=== PATIENT | female | born 1950 | race Caucasian/White ===

== ENCOUNTER → 2016-10-23 | Outpatient (CLI) | payer OTHER ==
[~2016-10-23] MED LIST: ASPIRIN EC81 MG PO; CALCIUM 600+D31 EACH PO; FUROSEMIDE20 MG PO; KLONOPIN TAB 00.5 MG PO; LISINOPRIL10 MG PO; NEURONTIN 300300 MG PO; NITROGLYCERIN8.5 GM TL; NITROGLYCERIN9 MG PO; NORCO 5-325 TA1 EACH PO; NORVASC 5 MG TAB5 MG PO; PRAVACHOL20 MG PO; PROLIA INJ60 MG/1 ML SC; PROTONIX 40 MG40 M1 PO; SLEEP AID25 M1 PO; SOTALOL80 MG PO; SPIRIVA18 MCG INH; VIIBRYD40 MG PO; VITAMIN D32000 UNIT PO; XARELTO20 MG PO
== END ==
LOC: HEART 5 10-12 08:00
DX: R06.89 Other abnormalities of breathing (principal); R06.00 Dyspnea, unspecified; I37.1 Nonrheumatic pulmonary valve insufficiency
CPT/HCPCS: 93306

== ENCOUNTER → 2017-01-02 | Outpatient (CLI) | payer OTHER ==
[~2017-01-02] VITALS: Ht 160 cm; Wt 63.5 kg
== END ==
LOC: OPSV 10:30
DX: S22.000A Wedge compression fracture of unspecified thoracic vertebra, initial encounter for closed fracture (principal); M81.0 Age-related osteoporosis without current pathological fracture
CPT/HCPCS: 96372

== ENCOUNTER → 2020-10-14 | Outpatient (CLI) | payer MEDICARE, OTHER ==
[~2020-10-14] MED LIST changes: +AMLODIPINE BESY10 MG PO; +ANUSOL HC SUPP1 SUPP PR; +BENZONATATE100 MG PO; +BETAPACE 80MG T80 MG PO; +BETHANECHOL CHL10 MG PO; +CARDIZEM CD180 MG PO; +CEFUROXIME500 MG PO; +CLARITIN 10MG T10 MG PO; +COLACE100 MG PO; +COMBIVENT RESPIM4 GM INH; +DYMISTA NASAL S23 GM; +EFFEXOR XR37.5 MG PO; +ELIQUIS2.5 MG PO; +FEOSOL325 MG PO; +HYDROCHLOROTH12.5 MG PO; +IMDUR ER TAB 3030 MG PO; -LISINOPRIL10 MG PO; +MYRBETRIQ25 MG PO; -NEURONTIN 300300 MG PO; +NEURONTIN400 MG PO; +NITROGLYCERIN0.4 MG SL; -NORCO 5-325 TA1 EACH PO; +NORCO 7.5-3251 EACH PO; +OXYCODONE HCL5 MG PO; +SPIRIVA HANDIH18 MCG INH; +SYMBICORT 16010.2 GM INH; +THERAGRAN M TAB1 EA PO; +VEGETABLE LAXA8.6 MG PO; +ZANTAC150 MG PO; +ZESTRIL40 MG PO; +ZOFRAN ODT 4 MG4 MG PO; +ZOFRAN4 MG PO
== END ==
LOC: ECHO 11:38
DX: I20.9 Angina pectoris, unspecified (principal); I08.1 Rheumatic disorders of both mitral and tricuspid valves; I27.20 Pulmonary hypertension, unspecified; R93.1 Abnormal findings on diagnostic imaging of heart and coronary circulation
CPT/HCPCS: ECHO; 78452; 93017; 93306; A9502; J2785

== ENCOUNTER → 2020-10-18 | Outpatient (CLI) | payer MEDICARE, OTHER ==
[2020-10-18 11:18] LABS: BUN/CREATININE RATIO 16 (0-10)
== END ==
LOC: OPSV2 09:00
PROVIDERS: Surgery
DX: Z01.818 Encounter for other preprocedural examination (principal); I10 Essential (primary) hypertension; I25.2 Old myocardial infarction; Z95.2 Presence of prosthetic heart valve; Z79.899 Other long term (current) drug therapy
CPT/HCPCS: 36415; 80048; 93005

== ENCOUNTER → 2020-10-19 | Outpatient (CLI) | payer MEDICARE, OTHER | LOC: CT 12:52 | DX: S09.90XA Unspecified injury of head, initial encounter (principal) | CPT/HCPCS: 70450 ==

== ENCOUNTER 2020-10-20 07:53 | Inpatient (IN) | payer MEDICARE, OTHER ==
[~2020-10-20] VITALS: Ht 160 cm; Wt 56.7 kg
[~2020-10-20 07:53] MED LIST changes: -AMLODIPINE BESY10 MG PO; -BETHANECHOL CHL10 MG PO; -CLARITIN 10MG T10 MG PO; -COLACE100 MG PO; -COMBIVENT RESPIM4 GM INH; -ELIQUIS2.5 MG PO; -HYDROCHLOROTH12.5 MG PO; -MYRBETRIQ25 MG PO; -NITROGLYCERIN0.4 MG SL; -OXYCODONE HCL5 MG PO; -SPIRIVA HANDIH18 MCG INH; -SYMBICORT 16010.2 GM INH; -VEGETABLE LAXA8.6 MG PO; -ZOFRAN4 MG PO
[2020-10-20] MEDS ORDERED: AMLODIPINE BESY10 MG PO (08:47)
[2020-10-20] MEDS ORDERED: CLARITIN 10MG T10 MG PO (08:48)
[2020-10-20] MEDS ORDERED: HYDROCHLOROTH12.5 MG PO (08:48)
[2020-10-20] MEDS ORDERED: PROTONIX 40 MG40 M1 PO (08:48)
[2020-10-20] MEDS ORDERED: ELIQUIS2.5 MG PO (08:49)
[2020-10-20] MEDS ORDERED: BETHANECHOL CHL10 MG PO (08:49)
[2020-10-20] MEDS ORDERED: MYRBETRIQ25 MG PO (08:49)
[2020-10-21 03:07] LABS: HEMOGLOBIN 15.1 gm/dl (12.3-15.3); RED BLOOD COUNT 4.67 M/UL (4.00-5.10); WHITE BLOOD COUNT 6.2 K/UL (4.5-11.0)
[2020-10-21 03:25] LABS: BUN/CREATININE RATIO 13 (0-10)
[2020-10-21] MEDS ORDERED: OXYCODONE HCL5 MG PO (12:29)
[2020-10-21] MEDS ORDERED: VEGETABLE LAXA8.6 MG PO (12:29)
[2020-10-21] MEDS ORDERED: COLACE100 MG PO (12:29)
[2020-10-22 12:14] LABS: HEMOGLOBIN 15.5 gm/dl (12.3-15.3); RED BLOOD COUNT 4.7 M/UL (4.00-5.10)
[2020-10-22 12:22] LABS: WHITE BLOOD COUNT 14.2 K/UL (4.5-11.0)
--- NOTE | 2020-10-25 12:04 | NUR ---
INSTRUCTED KEEP FOLLOW UP APPOINTMENT, SHOWER DAILY, ACTIVITY TOLERATED. MEDS SENT TO [facility], TAKE ALL MEDS PRESCRIBED. ISACC KELLY R.N.
== END 2020-10-25 13:18 | disposition home or self-care (01) | DRG 348 ==
LOC: OR 07:53 → M/S 13:36 → OR 10-21 13:15 → M/S 10-21 15:41
PROVIDERS: Surgery; ADMIT Surgery
PROC: 06BY0ZC Excision of Hemorrhoidal Plexus, Open Approach (ICD-10-PCS; principal; 2020-10-20)
DX: K64.4 Residual hemorrhoidal skin tags (principal); E87.1 Hypo-osmolality and hyponatremia; K64.8 Other hemorrhoids; K21.9 Gastro-esophageal reflux disease without esophagitis; J30.9 Allergic rhinitis, unspecified; F41.9 Anxiety disorder, unspecified; M19.90 Unspecified osteoarthritis, unspecified site; E78.5 Hyperlipidemia, unspecified; I10 Essential (primary) hypertension; G47.00 Insomnia, unspecified; M54.5 Low back pain; I48.0 Paroxysmal atrial fibrillation; I25.10 Atherosclerotic heart disease of native coronary artery without angina pectoris; G89.29 Other chronic pain; F17.200 Nicotine dependence, unspecified, uncomplicated; Z86.73 Personal history of transient ischemic attack (TIA), and cerebral infarction without residual deficits; Z98.890 Other specified postprocedural states; I25.2 Old myocardial infarction; Z88.1 Allergy status to other antibiotic agents; Z79.82 Long term (current) use of aspirin; Z95.5 Presence of coronary angioplasty implant and graft; Z79.01 Long term (current) use of anticoagulants
CPT/HCPCS: 36415; 80048; 85025; 85027; 94640; 94664; 94760; 97161; 97165; G0378; J1100; J1170; J2001; J2270; J2405; J2704; J3010; J7030; J7040; J7120

== ENCOUNTER 2020-12-01 19:32 | Inpatient (IN) | payer MEDICARE, OTHER ==
[~2020-12-01] VITALS: Ht 160 cm; Wt 56.7 kg
[~2020-12-01 19:32] MED LIST changes: +AMLODIPINE BESY10 MG PO; +BETHANECHOL CHL10 MG PO; +CLARITIN 10MG T10 MG PO; +COLACE100 MG PO; +ELIQUIS2.5 MG PO; +HYDROCHLOROTH12.5 MG PO; +MYRBETRIQ25 MG PO; +OXYCODONE HCL5 MG PO; +VEGETABLE LAXA8.6 MG PO
[2020-12-01 21:01] LABS: HEMOGLOBIN 16.2 gm/dl (12.3-15.3); RED BLOOD COUNT 4.98 M/UL (4.00-5.10); WHITE BLOOD COUNT 7.1 K/UL (4.5-11.0)
[2020-12-01 21:19] LABS: BUN/CREATININE RATIO 16 (0-10)
[2020-12-02 03:56] LABS: RED BLOOD COUNT 5.15 M/UL (4.00-5.10); WHITE BLOOD COUNT 7.9 K/UL (4.5-11.0)
[2020-12-02 04:43] LABS: BUN/CREATININE RATIO 15 (0-10)
[2020-12-03 06:00] LABS: HEMOGLOBIN 15.5 gm/dl (12.3-15.3); RED BLOOD COUNT 4.76 M/UL (4.00-5.10); WHITE BLOOD COUNT 9.7 K/UL (4.5-11.0)
[2020-12-03 06:16] LABS: BUN/CREATININE RATIO 23 (0-10)
--- NOTE | 2020-12-03 14:55 | NUR ---
1450: RA SPO2 NOTED AT 97% PER DR ALVAREZ. PATIENT TO BE PLACED ON PULSE OX X 2 HOURS AND THEN DISCONTINUE PER VO DR ALVAREZ. 1500: SPO2 MONITOR PLACED ON PATIENT PER VO DR ALVAREZ, SPO2 NOTED AT 98%.
[2020-12-04] MEDS ORDERED: NITROGLYCERIN0.4 MG SL (11:25)
[2020-12-04] MEDS ORDERED: ZOFRAN4 MG PO (11:25)
[2020-12-04] MEDS ORDERED: COMBIVENT RESPIM4 GM INH (11:28)
[2020-12-04] MEDS ORDERED: SPIRIVA HANDIH18 MCG INH (11:28)
[2020-12-04] MEDS ORDERED: SYMBICORT 16010.2 GM INH (11:28)
[2020-12-08 06:43] LABS: RED BLOOD COUNT 4.74 M/UL (4.00-5.10)
[2020-12-08 07:25] LABS: BUN/CREATININE RATIO 17 (0-10)
--- NOTE | 2020-12-08 14:49 | NUR ---
UNABLE TO DOCUMENT UNDER INTUGAMENTARY DUE TO PREVIOUSLY COMPLETED DIAGNOSIS. KYPHOPLASTY INCESION COVERED BY BAND-AID. CLEAN DRY AND INTACT.
[2020-12-09 06:42] LABS: HEMOGLOBIN 14.3 gm/dl (12.3-15.3); RED BLOOD COUNT 4.47 M/UL (4.00-5.10)
[2020-12-09 07:30] LABS: BUN/CREATININE RATIO 14 (0-10)
--- NOTE | 2020-12-09 07:45 | NUR ---
S/P KYPHOPLASTY INCESION BANDAIDS CLEAN,DRY,INTACT. WNL
== END 2020-12-10 17:59 | disposition home or self-care (01) | DRG 478 ==
LOC: ER1 19:32 → CDU 12-02 03:28 → MED SURG 4 12-02 03:28 → CDU 12-02 03:28 → MED SURG 4 12-02 17:51
PROVIDERS: Internal Medicine; Orthopaedic Surgery; Physician Assistant; ADMIT Internal Medicine
PROC: 0QS03ZZ Reposition Lumbar Vertebra, Percutaneous Approach (ICD-10-PCS; 2020-12-08)
PROC: 0QU03JZ Supplement Lumbar Vertebra with Synthetic Substitute, Percutaneous Approach (ICD-10-PCS; 2020-12-08)
PROC: 0QB03ZX Excision of Lumbar Vertebra, Percutaneous Approach, Diagnostic (ICD-10-PCS; principal; 2020-12-08 12:00)
DX: M80.88XA Other osteoporosis with current pathological fracture, vertebra(e), initial encounter for fracture (principal); J96.11 Chronic respiratory failure with hypoxia; R07.89 Other chest pain; K52.9 Noninfective gastroenteritis and colitis, unspecified; G89.4 Chronic pain syndrome; E87.6 Hypokalemia; R32 Unspecified urinary incontinence; K21.9 Gastro-esophageal reflux disease without esophagitis; A08.4 Viral intestinal infection, unspecified; K29.00 Acute gastritis without bleeding; M54.9 Dorsalgia, unspecified; I25.10 Atherosclerotic heart disease of native coronary artery without angina pectoris; I10 Essential (primary) hypertension; I48.0 Paroxysmal atrial fibrillation; J44.9 Chronic obstructive pulmonary disease, unspecified; F17.210 Nicotine dependence, cigarettes, uncomplicated; F41.9 Anxiety disorder, unspecified; Z86.73 Personal history of transient ischemic attack (TIA), and cerebral infarction without residual deficits; Z90.49 Acquired absence of other specified parts of digestive tract; Z95.5 Presence of coronary angioplasty implant and graft; Z79.899 Other long term (current) drug therapy; Z98.51 Tubal ligation status; Z79.82 Long term (current) use of aspirin; Z99.81 Dependence on supplemental oxygen; Z82.49 Family history of ischemic heart disease and other diseases of the circulatory system; Z88.1 Allergy status to other antibiotic agents; Z79.01 Long term (current) use of anticoagulants
CPT/HCPCS: 36415; 71045; 72131; 72148; 80048; 80053; 81001; 82550; 82553; 83690; 83874; 84484; 85025; 85610; 88341; 88342; 88364; 88365; 93005; 94640; 94664; 94760; 96374; 96375; 96376; 97110; 97116; 97116-GP-CQ; 97161; 97162; 97530; 97530-GP-CQ; 99284; 99285; C1713; C9113; J0690; J1100; J2270; J2405; J2550; J2704; J2710; J3010; J3480; J7030; J7120; Q9962; Q9967

== ENCOUNTER → 2020-12-19 | Outpatient (CLI) | payer MEDICARE, OTHER ==
[~2020-12-19] MED LIST changes: +COMBIVENT RESPIM4 GM INH; +NITROGLYCERIN0.4 MG SL; +SPIRIVA HANDIH18 MCG INH; +SYMBICORT 16010.2 GM INH; +ZOFRAN4 MG PO
[2020-12-19 17:02] LABS: BUN/CREATININE RATIO 25 (0-10)
== END ==
LOC: LAB 15:46
PROVIDERS: Nurse Practitioner Family
DX: E87.1 Hypo-osmolality and hyponatremia (principal)
CPT/HCPCS: 80048

== ENCOUNTER → 2020-12-27 | Outpatient (CLI) | payer MEDICARE, OTHER | LOC: EXRD 13:00 → KOH-I 13:00 | DX: M48.56XA Collapsed vertebra, not elsewhere classified, lumbar region, initial encounter for fracture (principal); M85.88 Other specified disorders of bone density and structure, other site; M81.0 Age-related osteoporosis without current pathological fracture | CPT/HCPCS: 77080 ==

== ENCOUNTER → 2020-12-28 | Outpatient (CLI) | payer MEDICARE, OTHER | LOC: KOH-I 09:37 | DX: M80.08XA Age-related osteoporosis with current pathological fracture, vertebra(e), initial encounter for fracture (principal); M51.36 Other intervertebral disc degeneration, lumbar region | CPT/HCPCS: 72148 ==

== ENCOUNTER → 2021-04-26 | Outpatient (CLI) | payer MEDICARE, OTHER | LOC: HEART 5 13:52 | DX: J44.9 Chronic obstructive pulmonary disease, unspecified (principal); R94.2 Abnormal results of pulmonary function studies; F17.210 Nicotine dependence, cigarettes, uncomplicated | CPT/HCPCS: 94060; 94729 ==

== ENCOUNTER 2021-09-19 21:39 | Emergency (ER) | payer MEDICARE, OTHER ==
[2021-09-19 22:06] LABS: RED BLOOD COUNT 4.47 M/UL (4.00-5.10); WHITE BLOOD COUNT 9.9 K/UL (4.5-11.0)
[2021-09-19 22:40] LABS: BUN/CREATININE RATIO 12 (0-10)
== END 2021-09-19 23:57 | disposition home or self-care (01) ==
LOC: ER1 21:39
PROVIDERS: Family Medicine
DX: S09.90XA Unspecified injury of head, initial encounter (principal); J44.9 Chronic obstructive pulmonary disease, unspecified; I10 Essential (primary) hypertension; F17.200 Nicotine dependence, unspecified, uncomplicated; W19.XXXA Unspecified fall, initial encounter
CPT/HCPCS: 51702; 70450; 71045; 72125; 72131; 80053; 85025; 94640; 94664; 94760; 99284

== ENCOUNTER → 2021-09-28 | Outpatient (CLI) | payer MEDICARE, OTHER | LOC: KOH-I 15:13 | DX: M54.51 Vertebrogenic low back pain (principal); M54.6 Pain in thoracic spine; M51.34 Other intervertebral disc degeneration, thoracic region; M48.54XA Collapsed vertebra, not elsewhere classified, thoracic region, initial encounter for fracture | CPT/HCPCS: 72070; 72100 ==

== ENCOUNTER → 2021-10-06 | Outpatient (CLI) | payer MEDICARE, OTHER | LOC: KOH-I 14:42 | DX: R05.9 Cough, unspecified (principal); R91.8 Other nonspecific abnormal finding of lung field | CPT/HCPCS: 71046 ==

== ENCOUNTER → 2021-10-16 | Outpatient (CLI) | payer MEDICARE, OTHER | LOC: KOH-I 09:10 | DX: R91.1 Solitary pulmonary nodule (principal) | CPT/HCPCS: 71250 ==

== ENCOUNTER → 2021-11-13 | Outpatient (CLI) | payer MEDICARE, OTHER | LOC: KOH-I 12:16 | DX: M25.552 Pain in left hip (principal); M16.12 Unilateral primary osteoarthritis, left hip | CPT/HCPCS: 73502 ==

== ENCOUNTER → 2022-03-07 | Outpatient (CLI) | payer MEDICARE, OTHER | LOC: MAMO 02-21 15:00 → US 02-21 15:30 → MAMO 02-23 08:30 → US 02-23 10:45 → MAMO 13:30 | DX: Z12.31 Encounter for screening mammogram for malignant neoplasm of breast (principal); M21.959 Unspecified acquired deformity of unspecified thigh | CPT/HCPCS: 76882; 77063; 77067 ==

== ENCOUNTER → 2022-04-03 | Outpatient (CLI) | payer MEDICARE, OTHER | LOC: MAMO 14:00 | DX: R92.8 Other abnormal and inconclusive findings on diagnostic imaging of breast (principal); R92.0 Mammographic microcalcification found on diagnostic imaging of breast | CPT/HCPCS: 77065; G0279 ==